=== PATIENT | female | born 1995 ===

== ENCOUNTER 2025-03-01 12:15 | Observation (INO) | payer OTHER, SELFPAY ==
--- NOTE | ~2025-03-01 | MR_ITS ---
CLINICAL HISTORY: Cholestatic LFTs MRCP without gadolinium Comparison: US - US ABDOMEN LIMITED - 03/01/25 15:13 EST Findings: There is motion artifact limiting evaluation. Cholelithiasis. No wall thickening or pericholecystic fluid. No biliary duct dilatation. No definite choledocholithiasis given limitations of motion artifact. Common bile duct 3 mm diameter. Unremarkable solid organs. IMPRESSION: No bile duct dilatation. This document has been electronically signed by: Jono Bojorquez MD on 03/02/2025 18:33:25
--- NOTE | ~2025-03-01 | US_ITS ---
CLINICAL HISTORY: RUQ pain --- Additional Notes or Special Instructions: assess GB, CBD, liver US limited to right upper quadrant Comparison: None Findings: Liver is normal size and reveals homogeneous echotexture. No focal hepatic lesions. No intrahepatic ductal dilatation. Right lobe length measures 15.5 cm. Portal vein reveals hepatopetal flow. Common bile duct measures 4 mm. Gallbladder reveals multiple shadowing stones. No wall thickening or pericholecystic fluid.. No sonographic Rogers's sign. Impression: 1. Cholelithiasis, without sonographic evidence of cholecystitis. This document has been electronically signed by: Son Roland MD on 03/01/2025 15:59:44
--- NOTE | ~2025-03-01 | XR_ITS ---
CLINICAL HISTORY: rule out aspiration 1 view chest x-ray Comparison: None provided Findings: The lungs are clear. Normal size heart. No acute fracture. IMPRESSION: 1. No acute findings. This document has been electronically signed by: Marta Marrero MD on 03/01/2025 13:13:46
[2025-03-01 12:27] VITALS: BP 134/90; PULSE 93; RESP 18; TEMP 36.8; O2SAT 95; BMI 56.6
--- NOTE | 2025-03-01 12:30 | ED_ITS ---
HPI - Abdominal Pain General Chief Complaint: Abdominal Pain Stated Complaint: Abd pain Time Seen by Provider: 03/01/25 14:19 Source: patient, RN notes reviewed and brickmason supervisor Mode of arrival: ambulatory Limitations: language barrier History of Present Illness ED Provider: Tatiana Spann PA-C HPI narrative: This is a 29-year-old romanian speaking female who presents emergency department with concerns of abdominal pain. Patient reports that over the last year, she noticed that she was getting epigastric and right upper quadrant pain during her previous . She states that this eventually resolved. She states that over the last several months she has had episodes in which she would have epigastric and right upper quadrant pain. She states that this pain has been more consistent for the last 2 months. She states that since last night her pain has become constant. She describes the pain as a pressure-like sensation, that is constant and does radiate into her back. She states that it is worsened with positional changes. She states typically the pain improves with food. She states that she attempted to eat at 10:00 a.m. this morning however her pain persisted. She states that she does have some nausea and vomiting. She states that she has been taking an unspecified pill for the past several months which provides her with relief. She denies taking any medications at home to treat her current symptoms. She does report that she has been taking Tylenol, no Tylenol today. She states that she only takes 1 pill at a time, denies overuse of Tylenol. She denies any chest pain, shortness for breath, fevers, chills, diarrhea, constipation, or urinary symptoms. She states she is unable to sleep last night due to the pain. She denies any alcohol use, no chronic medical conditions, no daily medications, she did have an appendectomy, otherwise no other abdominal surgeries. MD elicited complaint: abdominal pain Location: epigastric Severity: moderate Quality: aching Radiation: none Migration to: no migration Exacerbating factors: nothing Relieving factors: nothing Associated symptoms: denies other symptoms Related Data Allergies Allergy/AdvReac Type Severity Reaction Status Date / Time No Known Allergies Allergy Verified 03/01/25 12:33 Review of Systems Review of Systems Constitutional : No Fever, No Chills ENT/Mouth : No sore throat, No Rhinorrhea Eyes: No Eye Pain, No Swelling, No Redness Cardiovascular : No Chest Pain, No SOB Respiratory : No Cough, No Sputum Gastrointestinal : +Nausea, + Vomiting, No Diarrhea, + abdominal Pain Genitourinary : No Dysuria, No Hematuria Musculoskeletal : No joint pain, No Myalgias, No Joint Swelling Skin : No Skin Lesions Neuro : No Weakness, No Numbness, No Headache All other systems reviewed and are negative Yes all other systems are reviewed and are negative Constitutional: Reports as per [facility] Social History Social History Smoked in Last 30 Days: No Use of substances other than those prescribed or required for medical reasons: No Advance Directives: No Advance Directives Information Provided: Yes Do you have a plan to hurt others: No Plan Physical Exam ED Vital Signs: Vital Signs - 24 hr 03/01/25 12:27 03/01/25 14:29 Temperature 98.2 F Pulse Rate 93 87 Respiratory Rate 18 16 Blood Pressure 134/90 H 133/88 Pulse Oximetry 95 98 Oxygen Delivery Method Room Air Room Air BMI result Body Mass Index 56.6 Const General: cooperative, comfortable and no acute distress Orientation/consciousness: patient oriented x3 Limitations: no limitations [facility] Head: Yes normal to inspection, Yes normocephalic and Yes atraumatic Ears: hearing grossly normal bilaterally General nose exam: Normal external nose present Face and sinus: Yes normal facial exam Mouth: Normal oral and palatal mucosa present, oropharynx normal and moist mucous membranes Throat: Yes posterior oropharynx normal Eyes General: appearance normal, both eyes and all related structures Eyelids: Yes eyelids normal Conjunctivae: conjunctivae normal Sclerae: sclerae normal Pupils: Equal, round and reactive pupils present EOM: EOMs intact bilaterally Neck Neck: Yes normal visual inspection, Yes full ROM and Yes no lymphadenopathy Lymphatic: no lymphadenopathy noted Chest Chest palpation & inspection: normal inspection of the chest Resp Effort & Inspection: normal respiratory effort and able to speak in complete sentences Auscultation: clear to auscultation bilaterally, no crackles, no rales, no rhonchi and no wheezes Cardio Rate: regular rate Rhythm: regular rhythm Heart sounds: S1 normal heart sound present and S2 normal heart sound present GI Other: Abdomen is soft, with tenderness palpation in the epigastrium and right upper quadrant with guarding. Positive Rogers's sign. Skin General skin exam: no rashes or lesions noted Trauma: no lacerations or abrasions Wounds: no wounds Neuro General: patient oriented x3 and moves all extremities Cranial nerves: Yes Equal, round and reactive pupils present Extrem General: Yes normal to inspection Right upper extremity: normal to inspection Left upper extremity: normal to inspection Right lower extremity: normal to inspection Left lower extremity: normal to inspection Course Course Course Narrative: This is a RME preformed in triage by Elzbieta Lozoya PA-C. Date:03/01/25, time 1233. Patient presents with abd pain n/v. No diarrhea. No EtoH or poor food exposure. 10x no blood. Not treated at home. Last meal: tried eating this morning, vomit. Ate dinner last night no pain (bread and chicken). Voided this morning. Finished menses yesterday. Work UP: abd labs, zofran, CXR rule out aspiration Will defer full ROS and PE to treating provider. Patient will continued to be monitored in the interim. Medical Decision Making Medical Decision Making [facility] Narrative: This is a 29-year-old female who presents emergency department with complaints of right upper quadrant pain. Her symptoms have been ongoing for over a year however more consistent over the last 2 months, and has been persistent since last night. Pain is in the epigastrium right upper quadrant and does radiate to her back. On arrival, blood pressure mildly elevated 134/90, all other vital signs within normal limits. Labs were obtained prior to my evaluation, she has no leukocytosis, stable H&H, chemistry revealing transaminitis, with an AST at 454/ALT 293, alk phos 194, lipase 13. Patient is not . X-ray of her chest was also ordered, this was unremarkable. Given right upper quadrant pain as well as elevated liver enzymes, biliary etiology is time my differential. Biliary colic pushes cholecystitis, cholangitis, all considered. Will obtain ultrasound, will medicate with IV fluids, IV pain medication, and give 1 time dose of ceftriaxone. We will also obtain lactic, blood cultures, and hepatitis panel. 4:48 PM 03/01/2025 (Tatiana Spann PA-C): Ultrasound revealing cholelithiasis, no evidence of cholecystitis. Given elevated liver enzymes, will reach out to GI. Patient re-evaluated, she is feeling better after receiving Toradol. We will continue to closely monitor. 5:18 PM 03/01/2025 (Tatiana Spann PA-C): Dr. Arita, GI specialist believes that she may have passed a stone, reporting to admit, IV antibiotics, and surgery consult into repeat LFTs in the morning. If LFTs remain elevated tomorrow she will need an MRCP. Discussed with hospitalist, transfer of care initiated. Differential Diagnosis Differential Diagnoses: The differential diagnosis associated with the presentation includes See above Consult Healthcare Provider Management of the patient was discussed with: Clay Modeler Dr. Arita, GI Lab Data [facility] Lab Attestation statement: I reviewed the patient's lab results. See [facility] 03/01/25 13:03 03/01/25 13:03 Labs: Lab Results 03/01/25 03/01/25 Range/Units 13:03 15:11 WBC 8.8 (4.8-10.8) X10*3/uL RBC 4.94 (4.20-5.50) X10*6/uL Hgb 12.9 (12.0-16.0) g/dl Hct 40.1 (37.0-47.0) % MCV 81.2 (80.0-98.0) fL MCH 26.1 L (27.0-33.0) pg MCHC 32.2 (31.0-35.0) g/dl RDW 13.2 (11.0-16.0) % Plt Count 312 (160-400) X10*3/uL MPV 10.7 (9.4-12.3) fL Immature Gran % (Auto) 0.3 (0.0-0.4) % Neut % (Auto) 73.5 H (45-73) % Lymph % (Auto) 19.7 L (20-40) % Hughes % (Auto) 5.8 (2-11) % Eos % (Auto) 0.2 (0-4) % Baso % (Auto) 0.5 (0-2) % Lymph # (Auto) 1.7 (1.2-4.9) X10*3/uL Hughes # (Auto) 0.5 (0.1-1.2) X10*3/uL Eos # (Auto) 0.0 (0.0-0.4) X10*3/uL Baso # (Auto) 0.0 (0.0-0.2) X10*3/uL Abs Immat Gran (auto) 0.03 (0.00-0.03) X10*3/uL Absolute Neuts (auto) 6.5 (2.0-8.3) x10*3/uL Absolute Nucleated RBC 0.000 (0.0-0.012) X10*3/uL Nucleated RBC % (auto) 0.0 (0.0-0.2) /100WBC Sodium 138 (135-145) mmol/L Potassium 3.9 (3.3-5.1) mmol/L Chloride 106 (96-108) mmol/L Carbon Dioxide 22 (22-29) mmol/L Anion Gap 14 (12-20) BUN 10 (9-16) mg/dL Creatinine 0.62 (0.5-1.4) mg/dL Estim Creat Clear Calc 214.6 Estimated GFR > 60 Random Glucose 110 (60-115) mg/dL Lactic Acid 1.3 (0.5-2.0) mmol/L Calcium 9.5 (8.4-10.2) mg/dL Magnesium 2.0 (1.6-2.6) mg/dL Total Bilirubin 1.0 (0.0-1.0) mg/dL AST 454 H (5-31) U/L ALT 293 H (0-31) U/L Alkaline Phosphatase 195 H (39-117) U/L Total Protein 8.2 H (6.5-8.0) g/dL Albumin 4.4 (3.5-5.0) g/dL Lipase 13 (8-78) U/L Beta HCG, Quant < 2 mIU/mL Radiology Impression Discussion of test interpretation with radiology: I have reviewed the radiologist's reading. Radiologist Impression: Comparison: None Findings: Liver is normal size and reveals homogeneous echotexture. No focal hepatic lesions. No intrahepatic ductal dilatation. Right lobe length measures 15.5 cm. Portal vein reveals hepatopetal flow. Common bile duct measures 4 mm. Gallbladder reveals multiple shadowing stones. No wall thickening or pericholecystic fluid.. No sonographic Rogers's sign. Impression: 1. Cholelithiasis, without sonographic evidence of cholecystitis. This document has been electronically signed by: Son Roland MD on 03/01/2025 15:59:44 Dictated By: Son Roland MD Signed By: <Electronically signed by Son Roland MD in OV> Medications Administered Discontinued Medications Generic Name Dose Route Start Last Admin Trade Name Lizzie PRN Reason Stop Dose Admin Sodium Chloride 1,000 mls @ 999 mls/hr 03/01/25 15:04 03/01/25 16:13 Ns IV 03/01/25 16:04 Infused .Q1H1M ONE Infusion Ceftriaxone Sodium 2 gm/ 50 mls @ 100 mls/hr 03/01/25 15:04 03/01/25 16:13 Sodium Chloride IV 03/01/25 15:33 Infused ONCE ONE Infusion Ketorolac Tromethamine 15 mg 03/01/25 14:55 03/01/25 15:21 Ketorolac Tromethamine 15 Mg/Ml Vial IVPUSH 03/01/25 14:56 15 mg ONCE ONE Administration Ondansetron HCl 4 mg 03/01/25 12:33 03/01/25 12:36 Ondansetron Odt 4 Mg Tab.Rapdis TRANSLINGU 03/01/25 12:34 4 mg ONCE ONE Administration Critical Care Time Critical Care Time Critical Care Time: Yes Total Critical Care Time: 45 Attestation: I have personally provided critical care time exclusive of time spent on separately billable procedures. Time includes review of lab data, radiology results, discussion with consultants, and monitoring for potential decompensation. Intervention performed as documented. Discharge Plan Discharge Clinical Impression: Cholelithiasis, Transaminitis Patient Disposition: Admitted As Inpatient Print Language: Korean
[2025-03-01 13:07] LABS: MANUAL DIFF FLAG NO
[2025-03-01 13:08] LABS: Hematocrit 40.1 % (37.0-47.0); Hemoglobin 12.9 g/dl (12.0-16.0); Imm Gran Abs Auto 0.03 X10*3/uL (0.00-0.03); Imm Gran Pct Auto 0.3 % (0.0-0.4); Lymphocytes Absolute Auto 1.7 X10*3/uL (1.2-4.9); Mean Corpuscular HGB Conc 32.2 g/dl (31.0-35.0); Mean Corpuscular Hemoglobin 26.1 pg (27.0-33.0); Mean Corpuscular Volume 81.2 fL (80.0-98.0); NRBC Abs Auto 0.000 X10*3/uL (0.0-0.012); NRBC Pct Auto 0.0 /100WBC (0.0-0.2); Platelet Count 312 X10*3/uL (160-400); Red Blood Count 4.94 X10*6/uL (4.20-5.50); White Blood Count 8.8 X10*3/uL (4.8-10.8)
[2025-03-01 13:29] LABS: Alanine Aminotransferase 293 U/L (0-31); Albumin Level 4.4 g/dL (3.5-5.0); Alkaline Phosphatase 195 U/L (39-117); Anion Gap 14 (12-20); Aspartate Amino Transferase 454 U/L (5-31); Blood Urea Nitrogen 10 mg/dL (9-16); Calcium 9.5 mg/dL (8.4-10.2); Carbon Dioxide 22 mmol/L (22-29); Chloride 106 mmol/L (96-108); Creatinine Clr Calc Pharmacy 214.6; Estimated Glomerular Filt Rate > 60; Lipase 13 U/L (8-78); Magnesium 2.0 mg/dL (1.6-2.6); Potassium 3.9 mmol/L (3.3-5.1); Sodium 138 mmol/L (135-145); Total Protein 8.2 g/dL (6.5-8.0)
[2025-03-01 14:29] VITALS: BP 133/88; PULSE 87; RESP 16; O2SAT 98
--- OUTSIDE RECORDS SUMMARY | 2025-03-01 14:32 | XMS_ITS | Clinical Summary ---
Author Organization [facility] Address [address] [place] [address] Phone Care Team Providers Care Quarry Boss Name Role Phone Dennis Lianna Unavailable Farhat Quijano MD Unavailable [phone] Lucy Ramirez MD Unavailable Allergies No known active allergies Medications no115/iron/folic acid ( 19 ORAL) Take by mouth 1 time each day. Active BABY ASPIRIN ORAL Take 81 mg by mouth 1 time each day. Active Social History Tobacco Use Types Packs/Day Years Used Date Smoking Tobacco: Never Smokeless Tobacco: Never Tobacco Cessation:Counseling Given: Not Answered Alcohol Use Standard Drinks/Week Comments Not Currently 0 (1 standard drink = 0.6 oz pur e alcohol) Comments No Sex and Gender Information Value Date Recorded Sex Assigned at Female 12/11/2023 12:50 PM EDT Legal Sex Female 1:36 PM EDT Gender Identity Female 12/11/2023 12:50 PM EDT Sexual Orientation Straight 12/11/2023 12 :50 PM EDT Last Filed Vital Signs Vital Sign Reading Time Taken Comments Blood Pressure 128/81 12/12/2023 3:54 PM EDT Pulse 96 12/12/2023 3:54 PM EDT Temperature 36 C (96.8 F) 12/12/2023 3:54 PM EDT Respiratory Rate - - Oxygen Saturation 100% 12/12/2023 3:54 PM EDT Inhaled Oxygen Concentration - - Weight - - Height - - Body Mass Index - - Plan of Treatment Health Maintenance Due Date Last Done Comments Chlamydia and Gonorrhea Screening 1994 HIV Screening 1994 MMR Vaccines (1 of 1 - Stand sana series) 07/14/1995 Anemia Screening 2006 Varicella Vaccines (1 of 2 - 13+ 2-dose series) 07/14/2007 Hepatitis C Screening 2012 Hepatitis B Vaccines (1 of 3 - 19+ 3-dose series) 2013 DTaP/Tdap/Td Vaccines (2 - T d or Tdap) 12/07/2023 11/09/2023 Influenza Vaccine (#1) 2024 HIB Vaccines Aged Out No longer eligi ble based on patient's age to complete this topic HPV Vaccines (No Doses Required) Completed Hepatitis A Vaccines Aged Out No long er eligible based on patient's age to complete this topic IPV Vaccines Aged Out No longer eligi ble based on patient's age to complete this topic Meningococcal B Vaccine Aged Out No l onger eligible based on patient's age to complete this topic Meningococcal Vaccine Aged Out No lori jesus eligible based on patient's age to complete this topic Pneumococcal Vaccine: Pediat rics (0 to 5 Years) and At-Risk Patients (6 to 49 Years) Aged Out No longer eligi ble based on patient's age to complete this topic Rotavirus Vaccines Aged Out No longer eligible based on patient's age to complete this topic Insurance [facility] Care Teams Quarry Boss Relationship Specialty Start Date End Date Lianna Collins [address] [place] [address] Referring Provider Obstetrics and Gynecology 11/24/23 Farhat Quijano MD [address] [place] [id number] Pediatric Genetics 12/05/23 Lucy Ramirez MD [address] [place] [id number] Obstetrics and Gynecology 12/05/23
--- NOTE | 2025-03-01 17:51 | PM.IMHP ---
History of Present Illness Date of Service: 03/01/25 Attending physician on admission: Ortega Brumfield Chief Complaint: abdominal pain This is a 29 year old female with no significant past medical history who presents to the emergency department today with complaints of abdominal pain. Patient reports intermittent abdominal pain over the past year which does not seem to follow any particular pattern. Last night she began having similar pain in the epigastric region which was persistent and associated with multiple episodes of nonbloody emesis. She denies any associated fever, chills, diarrhea. She has no recent sick contacts. She presented due to the severity of the pain. In the emergency department her LFTs were noted to be elevated with AST 454, ALT 293 alkaline phosphatase 195, total bilirubin 1.0. Lipase within normal limits. Abdominal ultrasound shows evidence of cholelithiasis with no evidence of cholecystitis, common bile duct measuring 4 mm. No sonographic Rogers's sign. The ED provider discussed the case with the on-call GI provider who recommended admitting the patient for hydration, IV antibiotics and surgical consultation. Review of Systems Review of Systems: Yes all other systems are reviewed and are negative Constitutional: Constitutional: Denies chills and Denies fever(s) Cardiovascular: Cardiovascular: Denies chest pain, Denies palpitations and Denies dyspnea Respiratory: Respiratory: Denies cough and Denies dyspnea Gastrointestinal: Gastrointestinal: Reports abdominal pain, Denies diarrhea, Reports nausea and Reports vomiting Endocrine: Endocrine: Denies palpitations [facility] Medical History (Updated 03/02/25 @ 09:47 by Wilber Shelton MD) Morbid obesity Social History Patient Tobacco Use Status: Never used Tobacco Smoked in Last 30 Days: No Use of substances other than those prescribed or required for medical reasons: No Advance Directives: No Advance Directives Information Provided: Yes Do you have a plan to hurt others: No Plan Nutrition Risks: No Nutritional Risk Meds Allergies Allergy/AdvReac Type Severity Reaction Status Date / Time No Known Allergies Allergy Verified 03/01/25 12:33 Home Medications ?Medication ?Instructions ?Recorded ?Confirmed ?Last Taken ?Type cholecalciferol (vitamin D3) 25 25 mcg PO DAILY 03/01/25 03/01/25 Unknown History mcg (1,000 unit) tablet Physical Exam Vital Signs and Narrative: Vital Signs: Last Vital Signs Temp 98.2 F 03/01/25 12:27 Pulse 87 03/01/25 14:29 Resp 16 03/01/25 14:29 BP 133/88 03/01/25 14:29 Pulse Ox 98 03/01/25 14:29 O2 Del Method Room Air 03/01/25 14:29 BMI result Body Mass Index 56.6 Const: General: cooperative, comfortable, no acute distress, alert and awake Nutritional Appearance: obese Orientation/consciousness: patient oriented x3 Resp: Effort & Inspection: normal respiratory effort, able to speak in complete sentences, no respiratory distress and no use of accessory muscles Cardio: Rate: regular rate GI: Other: tenderness with deep palpation primarily in the epigastric region; no guarding no rigidity Inspection: No distended Palpation (GI): Soft to palpation Neuro: General: patient oriented x3, No moves all extremities and No CN's II-XI intact bilaterally Extrem: General: No pedal edema Results Labs 03/01/25 13:03 03/02/25 04:35 Labs: Laboratory Results - last 24 hr 03/01/25 03/01/25 13:03 15:11 MCV 81.2 MCH 26.1 L MCHC 32.2 RDW 13.2 Plt Count 312 MPV 10.7 Immature Gran % (Auto) 0.3 Neut % (Auto) 73.5 H Lymph % (Auto) 19.7 L Starr % (Auto) 5.8 Eos % (Auto) 0.2 Baso % (Auto) 0.5 Lymph # (Auto) 1.7 Starr # (Auto) 0.5 Eos # (Auto) 0.0 Baso # (Auto) 0.0 Abs Immat Gran (auto) 0.03 Absolute Neuts (auto) 6.5 Absolute Nucleated RBC 0.000 Nucleated RBC % (auto) 0.0 Anion Gap 14 Estim Creat Clear Calc 214.6 Estimated GFR > 60 Random Glucose 110 Lactic Acid 1.3 Calcium 9.5 Magnesium 2.0 Total Bilirubin 1.0 AST 454 H ALT 293 H Alkaline Phosphatase 195 H Total Protein 8.2 H Albumin 4.4 Lipase 13 Beta HCG, Quant < 2 Assessment and Plan (1) Cholelithiasis: Status: Acute (2) Transaminitis: Status: Acute Plan This is a 29-year-old female with no significant past medical history who presents to the emergency department with abdominal pain found to have elevated LFTs and cholelithiasis Abdominal pain Possibly due to cholelithiasis. Seems to be having biliary colic over the past year IVF, pain management general surgery consultation Elevated LFTs no CBD dilation per GI possible passed stone trend LFTs in am, if no improvement in LFTs will need MRCP hepatitis profile pending continue empiric ceftriaxone Gi consultation dvt ppx - lovenox code status - full code Quality Stroke Does the patient have a stroke diagnosis?: No VTE Prior VTE?: No VTE Risk Level:: Medical - moderate - high VTE Device Contraindication: Treatment Not Indicated VTE Drug Contraindication: N/A - Med Ordered
--- NOTE | 2025-03-01 17:53 | PHA.MEDREC ---
Pharmacy Consult ? Medication Reconciliation Pharmacy has completed the medication reconciliation. [employer] services utilized, patient only takes OTC vitamin D
[2025-03-01 18:10] VITALS: BP 136/80; PULSE 86; RESP 18; TEMP 36.8; O2SAT 97
[2025-03-01] MEDS: Lactated Ringers 1,000 ML 100 ML IVCONT (18:14)
[2025-03-01 23:05] VITALS: BP 154/95; PULSE 82; RESP 16; TEMP 36.8; O2SAT 99
[2025-03-02] VITALS (8 sets, daily range): BP systolic 103–144; BP diastolic 63–89; PULSE 74–96; RESP 15–20; TEMP 36.3–36.7; O2SAT 95–98; BMI 61.5
--- NOTE | 2025-03-02 00:18 | PC.NURSE ---
Pt resting in stretcher, reporting 7/10 abdominal pain. No nausea. Breathing unlabored. Skin pwd. Pt medicated as charted. Pt has LR infusing @ 100 ml/hr. Call hernandez within reach. Awaiting bed assignment.
[2025-03-02] MEDS: Lactated Ringers 1,000 ML 100 ML IVCONT ×2 (05:04→14:13)
[2025-03-02 05:10] LABS: Alanine Aminotransferase 509 U/L (0-31); Albumin Level 3.7 g/dL (3.5-5.0); Alkaline Phosphatase 220 U/L (39-117); Anion Gap 12 (12-20); Aspartate Amino Transferase 588 U/L (5-31); Blood Urea Nitrogen 13 mg/dL (9-16); Calcium 9.1 mg/dL (8.4-10.2); Carbon Dioxide 25 mmol/L (22-29); Chloride 108 mmol/L (96-108); Creatinine Clr Calc Pharmacy 204.7; Estimated Glomerular Filt Rate > 60; Potassium 3.5 mmol/L (3.3-5.1); Sodium 141 mmol/L (135-145); Total Protein 7.0 g/dL (6.5-8.0)
--- NOTE | 2025-03-02 08:30 | P.CNGI_ITS ---
History of Present Illness Data of Consult Service Date: 03/02/25 Requesting physician: Coral Moeller Primary Care Provider: Unknown Physician HPI Reason for consult: cholilithiasis, elevated LFTs 29 YF with no significant past medical history seen [place] [facility] on 03[place]01[place]25 with abdominal pain. 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 On 02/28/25, she started having similar pain in the epigastrium radiating to RUQ which was persistent and associated with multiple episodes of non-bloody emesis. Pt reports abdominal pain has resolved with pain medications Pt denied fever, chills, diarrhea. She has no recent sick contacts. She presented due to the severity of the pain. Patient denies smoking or ETOH abuse. Labs showed elevated LFTs with with AST 454, ALT 293 alkaline phosphatase 195, total bilirubin 1.0. Lipase within normal limits. Pt was admitted for hydration, IV antibiotics and surgical consultation. PAST ABD SURGERIES: Patient is status post appendectomy and FAMILY HISTORY: History of gallstones in an aunt. Patient denies known family history of colon polyps or GI malignancy. 03/01/25 ABD US SHOWED: Common bile duct measures 4 mm. Gallbladder reveals multiple shadowing stones. No wall thickening or pericholecystic fluid.. No sonographic Rogers's sign. Impression: 1. Cholelithiasis, without sonographic evidence of cholecystitis. Review of Systems 2 Review of Systems: Yes all other systems are reviewed and are negative [facility] Past Medical History Medical History (Updated 03/02/25 @ 16:14 by Russel Arita MD) Morbid obesity Social History Social History Patient Tobacco Use Status: Never used Tobacco Meds Allergies Allergy/AdvReac Type Severity Reaction Status Date / Time No Known Allergies Allergy Verified 03/01/25 12:33 Active Medications: Current Medications Acetaminophen (Acetaminophen 325 Mg Tablet) 650 mg PO Q6H PRN PRN Reason: Pain, Mild 1-3,fever,headache Calcium Carbonate (Calcium Carbonate 750 Mg Tab.Chew) 750 mg PO Q4H PRN PRN Reason: Heartburn Enoxaparin Sodium (Enoxaparin Sodium 40 Mg/0.4 Ml Syringe) 40 mg SUBCUT Q24H [facility] Last Admin: 03/01/25 18:13 Dose: 40 mg Famotidine (Famotidine/Pf 20 Mg/2 Ml Vial) 20 mg IVPUSH DAILY [facility] Last Admin: 03/02/25 08:15 Dose: 20 mg Lactated Ringer's (Lr) 1,000 mls @ 100 mls/hr IVCONT .Q10H [facility] Last Admin: 03/02/25 05:04 Dose: 100 mls/hr Ceftriaxone Sodium 1 gm/ (Sodium Chloride) 50 mls @ 100 mls/hr IV Q24H [facility] Magnesium Hydroxide (Milk Of Magnesia 30 Ml Oral.Susp) 30 ml PO DAILY PRN PRN Reason: Constipation Melatonin (Melatonin 3 Mg Tablet) 6 mg PO BEDTIME PRN PRN Reason: Insomnia Morphine Sulfate (Morphine Sulfate 4 Mg/Ml Cartridge) 2 mg IVPUSH Q4H PRN; Protocol PRN Reason: Pain, Severe (Pain Scale 7-10) Last Admin: 03/02/25 00:16 Dose: 2 mg Ondansetron HCl (Ondansetron Hcl 4 Mg/2 Ml Vial) 4 mg IVPUSH Q8H PRN PRN Reason: Nausea and Vomiting Sodium Chloride (0.9 % Sodium Chloride Flush 3 Ml Syringe) 3 ml IVFLUSH QSHIFT [facility] Last Admin: 03/02/25 07:16 Dose: Not Given Home Medications ?Medication ?Instructions ?Recorded ?Confirmed ?Last Taken ?Type cholecalciferol (vitamin D3) 25 25 mcg PO DAILY 03/01/25 Unknown History mcg (1,000 unit) tablet Physical Exam 2 Vital Signs: Vital Signs: Last Vital Signs Temp 98 F 03/02/25 08:16 Pulse 85 03/02/25 08:16 Resp 18 03/02/25 08:16 BP 119/64 03/02/25 08:16 Pulse Ox 97 03/02/25 08:16 O2 Del Method Room Air 03/02/25 08:16 BMI result Body Mass Index 56.6 Const: General: no acute distress Nutritional Appearance: obese O rientation/consciousness: patient oriented x3 Limitations: language barrier HEENT: Head: Yes normal to inspection Ears: hearing grossly normal bilaterally Eyes: Sclerae: sclerae normal Pupils: Equal, round and reactive pupils present Neck: Neck: Yes normal visual inspection Chest: Chest palpation & inspection: normal inspection of the chest Resp: Effort & Inspection: normal respiratory effort Auscultation: clear to auscultation bilaterally Cardio: Palpation: normal PMI Rate: regular rate Rhythm: regular rhythm Heart sounds: S1 normal heart sound present, S2 normal heart sound present and no murmurs GI: Palpation (GI): Soft to palpation, Tenderness to palpation present (GI) (Moderate epigastric tenderness) and No hepatosplenomegaly present A uscultation: normal bowel sounds Rectal Exam - Female: deferred Skin: General skin exam: no rashes or lesions noted Neuro: General: patient oriented x3, gait normal and moves all extremities Cranial nerves: Yes Equal, round and reactive pupils present Psych: Appearance: grossly normal Mental Status: mental status grossly normal Results Labs 03/01/25 13:03 03/02/25 04:35 Labs: Short CBC 03/01/25 Range/Units 13:03 WBC 8.8 (4.8-10.8) X10*3/uL Hgb 12.9 (12.0-16.0) g/dl Hct 40.1 (37.0-47.0) % Plt Count 312 (160-400) X10*3/uL [facility] 03/01/25 03/02/25 13:03 04:35 Sodium 138 141 Potassium 3.9 3.5 Chloride 106 108 Carbon Dioxide 22 25 BUN 10 13 Creatinine 0.62 0.65 Calcium 9.5 9.1 Liver Function 03/01/25 03/02/25 Range/Units 13:03 04:35 Total Bilirubin 1.0 1.8 H (0.0-1.0) mg/dL Direct Bilirubin 1.3 H (0.0-0.5) mg/dL AST 454 H 588 H (5-31) U/L ALT 293 H 509 H (0-31) U/L Alkaline Phosphatase 195 H 220 H (39-117) U/L Albumin 4.4 3.7 (3.5-5.0) g/dL Assessment and Plan (1) Cholelithiasis: Qualifiers: Biliary obstruction: without biliary obstruction Cholecystitis presence: without cholecystitis Cholelithiasis location: gallbladder and bile duct Qualified Code(s): K80.70 - Calculus of gallbladder and bile duct without cholecystitis without obstruction Status: Acute (2) Elevated LFTs: Status: Acute Plan 29 YF with morbid obesity admitted [place] [facility] [place] with abdominal pain. Patient reports intermittent abdominal pain over the past year which does not seem to follow any particular pattern. Labs showed elevated LFTs with with AST 454, ALT 293 alkaline phosphatase 195, total bilirubin 1.0. Lipase within normal limits. FU LFTS today showed an increase in TB, transaminases and AP Abd US showed Common bile duct measures 4 mm. Gallbladder reveals multiple shadowing stones. No wall thickening or pericholecystic fluid.. No sonographic Rogers's sign. RECOMMENDATIONS: 1. Agree with IV pain medications, antiemetics and antibiotics 2. Check hepatitis serologies and MRCP 3. If MRCP is negative for CBD stone and hepatitis serologies are negative, pt can proceed with [facility] If MRCP shows CBD stone, pt will need an ERCP prior to [facility] Procedures Date of Service Date of Service: 03/02/25
--- NOTE | 2025-03-02 09:42 | P.CONGS_ITS ---
History of Present Illness Consult details Consult date: 03/02/25 Requesting physician: Ortega Brumfield Narrative: 29-year-old female patient presenting to the emergency department with complaints of abdominal pain in the epigastrium and right upper quadrant since Monday. She reports intermittent episodes of similar pain over the past year which began during her . The pain was associated with multiple episodes of nausea and vomiting but without diarrhea or bloody stools. Because of the persistent pain she subsequently presented to the emergency department for further evaluation. She was noted to have elevated liver function tests including elevated transaminase and alkaline phosphatase level. Further workup with an abdominal ultrasound revealed cholelithiasis without evidence of acute cholecystitis or common bile duct stone. There was a negative sonographic Rogers sign. The patient was admitted for IV hydration and IV antibiotics. This morning the patient feels improved after receiving pain medication. She reports feeling hungry in his requesting food. Review of Systems 2 Review of Systems: Yes all other systems are reviewed and are negative PMFSH Past Medical History Medical History (Updated 03/02/25 @ 09:47 by Wilber Shelton MD) Morbid obesity Social History Social History Patient Tobacco Use Status: Never used Tobacco Smoked in Last 30 Days: No Use of substances other than those prescribed or required for medical reasons: No Advance Directives: No Advance Directives Information Provided: Yes Do you have a plan to hurt others: No Plan Nutrition Risks: No Nutritional Risk Meds Allergies Allergy/AdvReac Type Severity Reaction Status Date / Time No Known Allergies Allergy Verified 03/01/25 12:33 Active Medications: Current Medications Acetaminophen (Acetaminophen 325 Mg Tablet) 650 mg PO Q6H PRN PRN Reason: Pain, Mild 1-3,fever,headache Calcium Carbonate (Calcium Carbonate 750 Mg Tab.Chew) 750 mg PO Q4H PRN PRN Reason: Heartburn Enoxaparin Sodium (Enoxaparin Sodium 40 Mg/0.4 Ml Syringe) 40 mg SUBCUT Q24H [facility] Last Admin: 03/01/25 18:13 Dose: 40 mg Famotidine (Famotidine/Pf 20 Mg/2 Ml Vial) 20 mg IVPUSH DAILY [facility] Last Admin: 03/02/25 08:15 Dose: 20 mg Lactated Ringer's (Lr) 1,000 mls @ 100 mls/hr IVCONT .Q10H [facility] Last Admin: 03/02/25 05:04 Dose: 100 mls/hr Ceftriaxone Sodium 1 gm/ (Sodium Chloride) 50 mls @ 100 mls/hr IV Q24H [facility] Magnesium Hydroxide (Milk Of Magnesia 30 Ml Oral.Susp) 30 ml PO DAILY PRN PRN Reason: Constipation Melatonin (Melatonin 3 Mg Tablet) 6 mg PO BEDTIME PRN PRN Reason: Insomnia Morphine Sulfate (Morphine Sulfate 4 Mg/Ml Cartridge) 2 mg IVPUSH Q4H PRN; Protocol PRN Reason: Pain, Severe (Pain Scale 7-10) Last Admin: 03/02/25 00:16 Dose: 2 mg Ondansetron HCl (Ondansetron Hcl 4 Mg/2 Ml Vial) 4 mg IVPUSH Q8H PRN PRN Reason: Nausea and Vomiting Sodium Chloride (0.9 % Sodium Chloride Flush 3 Ml Syringe) 3 ml IVFLUSH QSHIFT [facility] Last Admin: 03/02/25 07:16 Dose: Not Given Home Medications ?Medication ?Instructions ?Recorded ?Confirmed ?Last Taken ?Type cholecalciferol (vitamin D3) 25 25 mcg PO DAILY 03/01/25 Unknown History mcg (1,000 unit) tablet Physical Exam 2 Vital Signs: Vital Signs: Last Vital Signs Temp 98 F 03/02/25 08:16 Pulse 85 03/02/25 08:16 Resp 18 03/02/25 08:16 BP 119/64 03/02/25 08:16 Pulse Ox 97 03/02/25 08:16 O2 Del Method Room Air 03/02/25 08:16 BMI result Body Mass Index 56.6 Const: General: cooperative and no acute distress Nutritional Appearance: w ell nourished Orientation/consciousness: patient oriented x3 Limitations: no limitations HEENT: Head: Yes normocephalic and Yes atraumatic Ears: hearing grossly normal bilaterally Resp: Effort & Inspection: normal respiratory effort, no audible wheezes, no cough and no respiratory distress Cardio: Jugular venous distension: no JVD GI: Inspection: Yes normal to inspection Palpation (GI): Soft to palpation, Tenderness to palpation present (GI) in the epigastrum; not in the RLQ and Rogers's sign negative, no guarding, not rigid and No hepatosplenomegaly present Percussion: Yes normal to percussion Auscultation: normal bowel sounds Rectal Exam - Female: deferred Skin: Other: Warm, dry, no rash Neuro: General: patient oriented x3 Extrem: General: Yes no clubbing, cyanosis or edema Results Labs 03/01/25 13:03 03/02/25 04:35 Labs: Abnormal lab results 03/01/25 03/02/25 Range/Units 13:03 04:35 MCH 26.1 L (27.0-33.0) pg Neut % (Auto) 73.5 H (45-73) % Lymph % (Auto) 19.7 L (20-40) % Random Glucose 120 H (60-115) mg/dL Total Bilirubin 1.8 H (0.0-1.0) mg/dL Direct Bilirubin 1.3 H (0.0-0.5) mg/dL AST 454 H 588 H (5-31) U/L ALT 293 H 509 H (0-31) U/L Alkaline Phosphatase 195 H 220 H (39-117) U/L Total Protein 8.2 H (6.5-8.0) g/dL Short CBC 03/01/25 Range/Units 13:03 WBC 8.8 (4.8-10.8) X10*3/uL Hgb 12.9 (12.0-16.0) g/dl Hct 40.1 (37.0-47.0) % Plt Count 312 (160-400) X10*3/uL [facility] 03/01/25 03/02/25 13:03 04:35 Sodium 138 141 Potassium 3.9 3.5 Chloride 106 108 Carbon Dioxide 22 25 BUN 10 13 Creatinine 0.62 0.65 Calcium 9.5 9.1 Liver Function 03/01/25 03/02/25 Range/Units 13:03 04:35 Total Bilirubin 1.0 1.8 H (0.0-1.0) mg/dL Direct Bilirubin 1.3 H (0.0-0.5) mg/dL AST 454 H 588 H (5-31) U/L ALT 293 H 509 H (0-31) U/L Alkaline Phosphatase 195 H 220 H (39-117) U/L Albumin 4.4 3.7 (3.5-5.0) g/dL All other labs normal. Assessment and Plan (1) Cholelithiasis: Qualifiers: Cholelithiasis location: gallbladder and bile duct Cholecystitis presence: without cholecystitis Biliary obstruction: without biliary obstruction Qualified Code(s): K80.70 - Calculus of gallbladder and bile duct without cholecystitis without obstruction Status: Acute (2) Transaminitis: Status: Acute Plan Pleasant 29-year-old female patient presenting with a 1 year history of abdominal pain in the epigastrium and right upper quadrant, now with a 3 day history of abdominal pain in the right upper quadrant and epigastrium with the associated nausea and vomiting. Initial workup revealed an elevated LFTs which appeared to be increasing suggestive of choledocholithiasis. Patient does feel improved after receiving pain medication however given the rising bilirubin level, I would agree with proceeding with MRCP to evaluate for common duct stone. Discussed with Dr. Brumfield. We will follow along during her hospitalization. I discussed proceeding to cholecystectomy once common bile duct is assured to be cleared. This can be performed either as an inpatient procedure or as an elective outpatient procedure. Total time managing care of this patient today: 45 minutes. Procedures Date of Service Date of Service: 03/02/25
[2025-03-02] MEDS: diazePAM 10 MG/2 ML CARTRIDGE 5 MG IVPUSH (12:20)
--- NOTE | 2025-03-02 12:22 | PC.NURSE ---
Rogelio for pre medicate for MRI
--- NOTE | 2025-03-02 13:20 | PC.NURSE ---
Pt in MRI, given pre-med by primary RN, this RN received a call from MRI that the pt was still refusing to go into the machine for her MRCP. At this time this RN reached out to attending , who placed order for another 5mg of Valium, this RN called and talked with MRI that I can bring it down however they were no longer going to have time to do her procedure. At this time pt brought back up to room, next open spot is 5pm, and primary RN aware.
--- NOTE | 2025-03-02 15:10 | HO.NURTONUR ---
PER RN: Alert and oriented, ambulatory, Thai speaking Admit: Cholelithiasis Plan: MRCP today at 5pm (please message Dr. brumfield for meds for premedicating pt for MRI), IV ABX &hydration, surgical consult IV:20G in left AC Meds: LR 100 mL/hr Pain: none at this time NPO since last night Went to MRI around 1230P, was premedicated, but still refused due to anxiety. Told Dr. Brumfield who reported he was going to double dose of valium prior to her going again around 5PM PER MD: 29-year-old female patient presenting to the emergency department with complaints of abdominal pain in the epigastrium and right upper quadrant since Monday. She reports intermittent episodes of similar pain over the past year which began during her . The pain was associated with multiple episodes of nausea and vomiting but without diarrhea or bloody stools. Because of the persistent pain she subsequently presented to the emergency department for further evaluation. She was noted to have elevated liver function tests including elevated transaminase and alkaline phosphatase level. Further workup with an abdominal ultrasound revealed cholelithiasis without evidence of acute cholecystitis or common bile duct stone. There was a negative sonographic Rogers sign. The patient was admitted for IV hydration and IV antibiotics. This morning the patient feels improved after receiving pain medication. She reports feeling hungry in his requesting food.
--- NOTE | 2025-03-02 15:29 | HO.PM.IMPN ---
Subjective Subjective Date of Service: 03/02/25 Interval History: No acute issues overnight. Remains pain-free. LFTs elevated Review of Systems Denies chest pain Denies shortness of breath Denies nausea vomiting diarrhea Denies fever chills Physical Exam Vital Signs: Vital Signs: Last Vital Signs Temp 97.9 F 03/02/25 11:41 Pulse 82 03/02/25 15:12 Resp 16 03/02/25 15:12 BP 140/87 H 03/02/25 15:12 Pulse Ox 98 03/02/25 15:12 O2 Del Method Room Air 03/02/25 15:12 BMI result Body Mass Index 56.6 Const: Other: Awake alert no acute distress Resp: Other: Clear to auscultation bilaterally no rales rhonchi or wheezes Cardio: Other: No S4; positive S1-S2; no S3 murmurs rubs or gallops GI: Other: Soft nontender nondistended normoactive bowel sounds Extrem: Other: No edema bilaterally Objective Data Active Medications Acetaminophen (Acetaminophen 325 Mg Tablet) 650 mg PO Q6H PRN PRN Reason: Pain, Mild 1-3,fever,headache Calcium Carbonate (Calcium Carbonate 750 Mg Tab.Chew) 750 mg PO Q4H PRN PRN Reason: Heartburn Enoxaparin Sodium (Enoxaparin Sodium 40 Mg/0.4 Ml Syringe) 40 mg SUBCUT Q24H [facility] Last Admin: 03/01/25 18:13 Dose: 40 mg Documented By: CHAD Famotidine (Famotidine/Pf 20 Mg/2 Ml Vial) 20 mg IVPUSH DAILY [facility] Last Admin: 03/02/25 08:15 Dose: 20 mg Documented By: DUNG Lactated Ringer's (Lr) 1,000 mls @ 100 mls/hr IVCONT .Q10H [facility] Last Admin: 03/02/25 14:13 Dose: 100 mls/hr Documented By: DUNG Ceftriaxone Sodium 1 gm/ (Sodium Chloride) 50 mls @ 100 mls/hr IV Q24H [facility] Last Infusion: 03/02/25 14:45 Dose: Infused Documented By: DUNG Magnesium Hydroxide (Milk Of Magnesia 30 Ml Oral.Susp) 30 ml PO DAILY PRN PRN Reason: Constipation Melatonin (Melatonin 3 Mg Tablet) 6 mg PO BEDTIME PRN PRN Reason: Insomnia Morphine Sulfate (Morphine Sulfate 4 Mg/Ml Cartridge) 2 mg IVPUSH Q4H PRN; Protocol PRN Reason: Pain, Severe (Pain Scale 7-10) Last Admin: 03/02/25 00:16 Dose: 2 mg Documented By: ELADIO Ondansetron HCl (Ondansetron Hcl 4 Mg/2 Ml Vial) 4 mg IVPUSH Q8H PRN PRN Reason: Nausea and Vomiting Sodium Chloride (0.9 % Sodium Chloride Flush 3 Ml Syringe) 3 ml IVFLUSH QSHIFT [facility] Last Admin: 03/02/25 15:09 Dose: Not Given Documented By: DUNG Non-Admin Reason: IV Running Labs 03/01/25 13:03 03/02/25 04:35 Labs: Laboratory Results - last 24 hr 03/01/25 03/02/25 15:11 04:35 Anion Gap 12 Estim Creat Clear Calc 204.7 Estimated GFR > 60 Random Glucose 120 H Lactic Acid 1.3 Calcium 9.1 Total Bilirubin 1.8 H Direct Bilirubin 1.3 H AST 588 H ALT 509 H Alkaline Phosphatase 220 H Total Protein 7.0 Albumin 3.7 Assessment and Plan (1) Cholelithiasis: Status: Acute (2) Transaminitis: Status: Acute Plan This is a 29-year-old female with no significant past medical history who presents to the emergency department with abdominal pain found to have elevated LFTs and cholelithiasis 1.Abdominal pain -pain resolved however LFTs continue with cholestatic pattern that has increased -seen by surgery; no indication for acute intervention at this time -attempted MRCP but patient extremely anxious can not complete even with Valium. We will retry later today -and ceftriaxone (2) dvt ppx - lovenox code status - full code Quality Stroke Does the patient have a stroke diagnosis?: No VTE Prior VTE?: No VTE Risk Level:: Medical - moderate - high VTE Device Contraindication: Treatment Not Indicated VTE Drug Contraindication: N/A - Med Ordered
--- NOTE | 2025-03-02 16:42 | PC.NURSE ---
Dee from [employer] assisted with admission
[2025-03-03] VITALS: BP 117/81; PULSE 90; RESP 18; TEMP 36.5; O2SAT 94
[2025-03-03 04:00] VITALS: BP 138/93; PULSE 90; RESP 18; TEMP 36.3; O2SAT 95
[2025-03-03] MEDS: Lactated Ringers 1,000 ML 100 ML IVCONT (04:52)
[2025-03-03 05:50] LABS: MANUAL DIFF FLAG NO
[2025-03-03 05:56] LABS: Hematocrit 35.6 % (37.0-47.0); Hemoglobin 11.1 g/dl (12.0-16.0); Imm Gran Abs Auto 0.03 X10*3/uL (0.00-0.03); Imm Gran Pct Auto 0.4 % (0.0-0.4); Lymphocytes Absolute Auto 2.4 X10*3/uL (1.2-4.9); Mean Corpuscular HGB Conc 31.2 g/dl (31.0-35.0); Mean Corpuscular Hemoglobin 25.9 pg (27.0-33.0); Mean Corpuscular Volume 83.2 fL (80.0-98.0); NRBC Abs Auto 0.000 X10*3/uL (0.0-0.012); NRBC Pct Auto 0.0 /100WBC (0.0-0.2); Platelet Count 258 X10*3/uL (160-400); Red Blood Count 4.28 X10*6/uL (4.20-5.50); White Blood Count 7.2 X10*3/uL (4.8-10.8)
[2025-03-03 06:09] LABS: Alanine Aminotransferase 380 U/L (0-31); Albumin Level 3.5 g/dL (3.5-5.0); Alkaline Phosphatase 216 U/L (39-117); Anion Gap 13 (12-20); Aspartate Amino Transferase 220 U/L (5-31); Blood Urea Nitrogen 11 mg/dL (9-16); Calcium 8.8 mg/dL (8.4-10.2); Carbon Dioxide 25 mmol/L (22-29); Chloride 107 mmol/L (96-108); Creatinine Clr Calc Pharmacy 206.6; Estimated Glomerular Filt Rate > 60; Potassium 3.8 mmol/L (3.3-5.1); Sodium 141 mmol/L (135-145); Total Protein 6.8 g/dL (6.5-8.0)
[2025-03-03 07:42] VITALS: BP 105/54; PULSE 85; RESP 18; TEMP 36.3; O2SAT 94
--- NOTE | 2025-03-03 07:51 | PM.PNGS ---
Subjective Subjective Date of Service: 03/03/25 Interval history: Feels well. Ate solid food last night without any abdominal pain. Denies nausea, vomiting. Would like to go home. Physical Exam Vital Signs: Vital Signs: Last Vital Signs Temp 97.3 F 03/03/25 07:42 Pulse 85 03/03/25 07:42 Resp 18 03/03/25 07:42 BP 105/54 L 03/03/25 07:42 Pulse Ox 94 03/03/25 07:42 O2 Del Method Room Air 03/03/25 07:42 BMI result Body Mass Index 61.5 Const: General: comfortable, no acute distress and alert Orientation/consciousness: patient oriented x3 Resp: Effort & Inspection: normal respiratory effort GI: Other: markedly corpulent soft, nontender Palpation (GI): no guarding Percussion: Yes normal to percussion Skin: General skin exam: no rashes or lesions noted Neuro: General: patient oriented x3 and moves all extremities Objective Data Active Medications Acetaminophen (Acetaminophen 325 Mg Tablet) 650 mg PO Q6H PRN PRN Reason: Pain, Mild 1-3,fever,headache Calcium Carbonate (Calcium Carbonate 750 Mg Tab.Chew) 750 mg PO Q4H PRN PRN Reason: Heartburn Diazepam (Diazepam 10 Mg/2 Ml Cartridge) 5 mg IVPUSH ONCE PRN PRN Reason: Prior to MRI Enoxaparin Sodium (Enoxaparin Sodium 40 Mg/0.4 Ml Syringe) 40 mg SUBCUT Q24H [facility] Last Admin: 03/02/25 18:22 Dose: 40 mg Documented By: SUDHAKAR Famotidine (Famotidine/Pf 20 Mg/2 Ml Vial) 20 mg IVPUSH DAILY [facility] Last Admin: 03/02/25 08:15 Dose: 20 mg Documented By: DUNG Lactated Ringer's (Lr) 1,000 mls @ 100 mls/hr IVCONT .Q10H [facility] Last Admin: 03/03/25 04:52 Dose: 100 mls/hr Documented By: JENIFER Ceftriaxone Sodium 1 gm/ (Sodium Chloride) 50 mls @ 100 mls/hr IV Q24H [facility] Last Infusion: 03/02/25 14:45 Dose: Infused Documented By: DUNG Magnesium Hydroxide (Milk Of Magnesia 30 Ml Oral.Susp) 30 ml PO DAILY PRN PRN Reason: Constipation Melatonin (Melatonin 3 Mg Tablet) 6 mg PO BEDTIME PRN PRN Reason: Insomnia Morphine Sulfate (Morphine Sulfate 4 Mg/Ml Cartridge) 2 mg IVPUSH Q4H PRN; Protocol PRN Reason: Pain, Severe (Pain Scale 7-10) Last Admin: 03/02/25 00:16 Dose: 2 mg Documented By: ELADIO Ondansetron HCl (Ondansetron Hcl 4 Mg/2 Ml Vial) 4 mg IVPUSH Q8H PRN PRN Reason: Nausea and Vomiting Sodium Chloride (0.9 % Sodium Chloride Flush 3 Ml Syringe) 3 ml IVFLUSH QSHIFT [facility] Last Admin: 03/03/25 07:12 Dose: Not Given Documented By: PIETRO Non-Admin Reason: IV Running Labs 03/03/25 05:24 03/03/25 05:24 Labs: Laboratory Results - last 24 hr 03/03/25 05:24 MCV 83.2 MCH 25.9 L MCHC 31.2 RDW 13.5 Plt Count 258 MPV 10.7 Immature Gran % (Auto) 0.4 Neut % (Auto) 55.9 Lymph % (Auto) 33.0 [place] % (Auto) 7.1 Eos % (Auto) 2.9 Baso % (Auto) 0.7 Lymph # (Auto) 2.4 [place] # (Auto) 0.5 Eos # (Auto) 0.2 Baso # (Auto) 0.1 Abs Immat Gran (auto) 0.03 Absolute Neuts (auto) 4.0 Absolute Nucleated RBC 0.000 Nucleated RBC % (auto) 0.0 Anion Gap 13 Estim Creat Clear Calc 206.6 Estimated GFR > 60 Fasting Glucose 94 Calcium 8.8 Total Bilirubin 0.4 AST 220 H ALT 380 H Alkaline Phosphatase 216 H Total Protein 6.8 Albumin 3.5 Microbiology Microbiology Results: Microbiology 03/01/25 15:10 Blood Culture - Preliminary Blood - Venous No growth after 24 hours. 03/01/25 15:13 Blood Culture - Preliminary Blood - Venous No growth after 24 hours. Procedures Date of Service Date of Service: 03/03/25 Progress Note: A&P Assessment and plan (1) Elevated LFTs: Status: Acute Plan Admitted with RUQ/epigastric pain, found to have gallstones and elevated liver enzymes. MRCP negative for CBD dilatation or filling defect. Liver enzymes downtrending, bili now normal. Now asymptomatic and tolerating diet, abd very benign. Discussed options with patient and she would like to follow up in the office to discuss elective laparoscopic cholecystectomy, possible open. Ok for dc to home from surgical standpoint with outpatient follow up. Time Spent With Patient Time: Total time managing care of this patient today ____ minutes. Quality Stroke Does the patient have a stroke diagnosis?: No VTE Prior VTE?: No VTE Risk Level:: Medical - moderate - high VTE Device Contraindication: Treatment Not Indicated VTE Drug Contraindication: N/A - Med Ordered
[2025-03-03 07:59] LABS: HBS Num1 25.75 mIU/mL (0-7.99); HBc Num1 0.17 S/CO (0.00-0.79); HBsAGNum1 0.45 S/CO (0.00-0.99); Hepatitis A Antibody IgM 0.25 Index (0-0.79); Hepatitis B Surface Antigen Negative (Negative); ~HepC Num1 0.13 S/CO (0.00-0.79); ~Hepatitis A Antibody IgM Nonreactive (Nonreactive); ~Hepatitis B Surface Antibody REACTIVE (Nonreactive); ~Hepatitis C Antibody Nonreactive (Nonreactive)
[2025-03-03 12:00] VITALS: BP 126/69; PULSE 88; RESP 18; O2SAT 93
--- NOTE | 2025-03-03 13:42 | PM.DS ---
DS: Providers Provider Date of admission: 03/01/25 17:30 Date of discharge: 03/03/25 Primary care physician: Unknown Physician Consults: 03/01/25 17:56 Consult to General Surgery [place]ine [place]ing [place] [facility] [place] [facility] Reason for consultation: cholilithiasis Has provider been notified: No 03/01/25 17:57 Consult to Gastroenterology Routine Consulting Provider: [facility] [place] [facility] Reason for consultation: cholilithiasis, elevated LFTs Has provider been notified: No DS: Diagnosis Discharge Diagnosis (1) Elevated LFTs: Status: Acute DS: Summary Hospital Course Hospital Course: 29 year old female with no significant past medical history who presents to the emergency department today with complaints of abdominal pain. Patient reports intermittent abdominal pain over the past year which does not seem to follow any particular pattern. Last night she began having similar pain in the epigastric region which was persistent and associated with multiple episodes of nonbloody emesis. She denies any associated fever, chills, diarrhea. She has no recent sick contacts. She presented due to the severity of the pain. In the emergency department her LFTs were noted to be elevated with AST 454, ALT 293 alkaline phosphatase 195, total bilirubin 1.0. Lipase within normal limits. Abdominal ultrasound shows evidence of cholelithiasis with no evidence of cholecystitis, common bile duct measuring 4 mm. No sonographic Rogers's sign. The ED provider discussed the case with the on-call GI provider who recommended admitting the patient for hydration, IV antibiotics and surgical consultation. [facility] Patient admitted to general medical floor. Seen in consultation by GI who recommended MRCP. MRCP done and did not demonstrate any ductal dilatation or stones in the common duct. Cleared by surgery for discharge. LFTs trended downward. Patient is pain-free at time of discharge. At this point she is medically acceptable for discharge we will follow up with surgery in their office to discuss further options Time Attestation Discharge Coordination Time (in mins): 35 Quality: Safe Use of Opioids Does Pt have an Active Cancer Diagnosis on the Problem List?: No Quality: Stroke Does the patient have a stroke diagnosis?: No Physical Exam Vital Signs: Vital Signs: Last Vital Signs Temp 97.3 F 03/03/25 07:42 Pulse 88 03/03/25 12:00 Resp 18 03/03/25 12:00 BP 126/69 03/03/25 12:00 Pulse Ox 93 03/03/25 12:00 O2 Del Method Room Air 03/03/25 12:00 BMI result Body Mass Index 61.5 Const: Other: Awake alert no acute distress Resp: Other: Clear to auscultation bilaterally no rales rhonchi or wheezes Cardio: Other: No S4; positive S1-S2; no S3 murmurs rubs or gallops GI: Other: Soft nontender nondistended normoactive bowel sounds Extrem: Other: No edema bilaterally DS: Data Data Completed and Pending Labs on day of discharge: Laboratory Results - last 24 hr 03/01/25 03/03/25 15:11 05:24 WBC 7.2 RBC 4.28 Hgb 11.1 L Hct 35.6 L MCV 83.2 MCH 25.9 L MCHC 31.2 RDW 13.5 Plt Count 258 MPV 10.7 Immature Gran % (Auto) 0.4 Neut % (Auto) 55.9 Lymph % (Auto) 33.0 [place] % (Auto) 7.1 Eos % (Auto) 2.9 Baso % (Auto) 0.7 Lymph # (Auto) 2.4 [place] # (Auto) 0.5 Eos # (Auto) 0.2 Baso # (Auto) 0.1 Abs Immat Gran (auto) 0.03 Absolute Neuts (auto) 4.0 Absolute Nucleated RBC 0.000 Nucleated RBC % (auto) 0.0 Sodium 141 Potassium 3.8 Chloride 107 Carbon Dioxide 25 Anion Gap 13 BUN 11 Creatinine 0.68 Estim Creat Clear Calc 206.6 Estimated GFR > 60 Fasting Glucose 94 Calcium 8.8 Total Bilirubin 0.4 AST 220 H ALT 380 H Alkaline Phosphatase 216 H Total Protein 6.8 Albumin 3.5 Hepatitis A IgM Ab Nonreactive Hep Bs Antigen Negative Hep Bs Antibody REACTIVE Hep B Core Total Ab Nonreactive Hepatitis C Ab (EIA) Nonreactive Preliminary micro results at discharge 03/01/25 15:10 Blood Culture - Preliminary Blood - Venous No growth after 24 hours. 03/01/25 15:13 Blood Culture - Preliminary Blood - Venous No growth after 24 hours. Discharge Plan Discharge Anticipated Discharge Date/Time: 03/03/25 13:33 Patient Disposition: Home, Self-Care Discharge Diagnosis: Abnormal LFTs Referrals: Wilber Shelton MD [Physician, General Surgery] - 1 Week Physician,Unknown J [Primary Care Provider, Medical] - 1 Week Discharge Medications: New oxycodone 5 mg tablet 5 mg PO Q6H PRN (Reason: pain) Qty: 20 0RF Rx Instructions: Partial Fill upon patient request. Continued cholecalciferol (vitamin D3) 25 mcg (1,000 unit) Tablet 25 mcg PO DAILY Discharge Orders: Discharge Order (Routine); Ordered 03/03/25 Ordered By: Ortega Brumfield Diet: Low fat, low cholesterol Activity on Discharge: As tolerated Stand Alone Forms: Patient Portal Discharge page Print Language: Thai Care Plan Goals: Utilize oxycodone as needed for pain Health Concerns: Dr. Munroe's office will call you with the appointment for follow up to discuss further treatment Plan of Treatment: Follow up with the PCP as scheduled Assessment: See discharge summary
--- NOTE | 2025-03-03 14:16 | MHC.CM.PN ---
OCTAVIA MELTON CM MET WITH PT AT BEDSIDE, PT LIVES WITH SPOUSE AND IS FUNCTIONALLY INDEPENDENT. NO SERVICES/DME. PT DECLINES COMPLETING A HCP AT THIS TIME. PT HAS A PCP BUT UNSURE OF NAME/? OFFICE? DP: PT HAS BEEN MEDICALLY CLEARED FOR DC HOME, NO SERVICES. PT'S SPOUSE WILL TRANSPORT.
[2025-03-03 14:18] VITALS: BP 131/85; PULSE 86; RESP 18; TEMP 36.2; O2SAT 96
== END 2025-03-03 14:20 | disposition home or self-care (01) ==
LOC: HO.ED 17:29 → HO.EDOVER 17:36 → HO.S3 03-02 14:56
PROVIDERS: Physician Assistant Medical; Admitting Provider Physician Assistant Medical; Emergency Provider Emergency Medicine; Visit Provider Hospitalist
DX: R74.01 Elevation of levels of liver transaminase levels (principal); K80.70 Calculus of gallbladder and bile duct without cholecystitis without obstruction; K80.20 Calculus of gallbladder without cholecystitis without obstruction; R79.89 Other specified abnormal findings of blood chemistry; R10.11 Right upper quadrant pain
CPT/HCPCS: 36415; 71045; 74181; 76705; 80048; 80053; 80076; 83605; 83690; 83735; 84702; 85025; 86704; 86706; 86709; 86803; 87040; 87340; 96361; 96365; 96366; 96372; 96375; 96376; 99221; 99285; J0696; J1308; J1650; J1885; J2270; J3360; J7120

== ENCOUNTER 2025-03-01 17:30 | Outpatient (BNV) | payer MEDICAID, SELFPAY | END 2025-03-02 12:25 | PROVIDERS: Admitting Provider Physician Assistant Medical; Emergency Provider Emergency Medicine; Visit Provider Radiology Diagnostic Radiology | DX: K71.0 Toxic liver disease with cholestasis (principal) | CPT/HCPCS: 74181 ==

== ENCOUNTER → 2025-03-01 17:30 | Outpatient (BNV) | payer MEDICAID, SELFPAY | PROVIDERS: Admitting Provider Physician Assistant Medical; Emergency Provider Emergency Medicine; Visit Provider Physician Assistant Medical | DX: K80.20 Calculus of gallbladder without cholecystitis without obstruction (principal); R74.01 Elevation of levels of liver transaminase levels; K80.70 Calculus of gallbladder and bile duct without cholecystitis without obstruction | CPT/HCPCS: 99223; 99233 ==

== ENCOUNTER → 2025-03-01 17:30 | Outpatient (BNV) | payer MEDICAID, SELFPAY | PROVIDERS: Admitting Provider Physician Assistant Medical; Emergency Provider Emergency Medicine; Visit Provider Internal Medicine Gastroenterology | DX: K80.70 Calculus of gallbladder and bile duct without cholecystitis without obstruction (principal); R79.89 Other specified abnormal findings of blood chemistry | CPT/HCPCS: 99222 ==

== ENCOUNTER → 2025-03-01 17:30 | Outpatient (BNV) | payer MEDICAID, SELFPAY | PROVIDERS: Admitting Provider Physician Assistant Medical; Emergency Provider Emergency Medicine; Visit Provider Surgery | DX: R79.89 Other specified abnormal findings of blood chemistry (principal) | CPT/HCPCS: 99232 ==